=== PATIENT | female | born 1990 | race African-American/Black ===

== ENCOUNTER 2017-04-18 17:49 | Emergency (ER) | payer OTHER ==
--- NOTE | ~2017-04-18 | CT4 ---
[facility] A Service of [facility] RADIOLOGY TEXT RESULTS PATIENT: NIKKIE CAZARES LOCATION: CFT[facility] : 88 UNIT #: [id number] AGE: [address]: SOY BAGLEY APRN SEX: F ORDER DR: [id number] [facility] [address] [place], [place] [address] [id number] MR#: [id number] Acc #: [id number] NAME: NIKKIE CAZARES : 1990 SEX: F STUDY DATE/TIME: 04/18/2017 21:16 UNIT: CFTX ROOM: STUDY DESCRIPTION: CT Abd and Pelv Wo Cont Attending Physician: Soy Bagley Aprn Ordering Physician: Axel Alexandre M.D. MEDICAL IMAGING REPORT This report is preliminary unless electronic signature is present EXAM CT abdomen and pelvis 04/18/2017 HISTORY Right flank pain for 3 days. Nausea. Vomiting. Diarrhea. Chills. TECHNIQUE CT abdomen and pelvis performed without administration of oral or intravascular contrast. This CT exam was performed with one or more of the following radiation dose reduction techniques: automatic exposure control, adjustment of mA and/or kV according to patient size, and iterative reconstruction. COMPARISON STUDIES No prior CTs for comparison. FINDINGS Lung bases clear. Inferior heart and pericardium unremarkable. Visualized portions of liver notable for 1.2 cm focus of hypodensity in segment 4B of the liver, adjacent the falciform ligament, most consistent with focal fatty infiltration. Gallbladder, spleen, pancreas, adrenal glands unremarkable. No hydronephrosis or nephrolithiasis. No perinephric inflammatory change. The bilateral ureters are difficult to visualize given their decompressed state. No indication of ureteral calculi. No secondary signs of recent stone passage. Calculus in the deep right pelvis felt to be a phlebolith. It is not in the anticipated course of the distal right ureter. CT PELVIS: No inguinal adenopathy. Urinary bladder, uterus, adnexal regions unremarkable. No abnormal fluid collections. No pelvic or retroperitoneal adenopathy. Distal esophagus, stomach, small bowel [facility] A Service of [facility] RADIOLOGY TEXT RESULTS PATIENT: NIKKIE CAZARES LOCATION: CFTX : [birth year] UNIT #: [id number] AGE: [address]: SOY BAGLEY APRN SEX: F ORDER DR: unremarkable. Appendix normal. Colon unremarkable. Unopacified vascular structures unremarkable. Bony structures unremarkable. IMPRESSION 1. No renal calculi or obstruction. No acute renal findings are seen and there are no secondary signs of recent stone passage. 2. Gallbladder, pancreas, appendix normal. Uterus and adnexal regions unremarkable. 3. No abnormal fluid collections. No free air. 4. 1.2 cm area of hypodensity adjacent to the falciform ligament in segment 4B of the liver, most consistent with focal fatty infiltration. Given the patient's young age, benign etiology strongly favored. This is best fully characterized with elective MRI or multiphase contrast-enhanced CT. Dictated by... Khurram Saldivar M.D. THIS IS AN ELECTRONICALLY VERIFIED REPORT Khurram Saldivar M.D. at 04/19/2017 5:58 PM Torie TD: 04/18/2017 23:10 JOB #: [id number] MEDICAL IMAGING REPORT Page 1 of 1 COPY
[2017-04-18 18:22] LABS: URINE SOURCE CLEAN CATCH
[2017-04-18 18:32] LABS: URINE APPEARANCE CLOUDY; URINE BILIRUBIN NEG (NEG); URINE BLOOD 1+ (NEG); URINE COLOR YELLOW; URINE GLUCOSE NEG (NEG); URINE KETONE NEG (NEG); URINE LEUKOCYTE ESTERASE 3+ (NEG); URINE NITRATE NEG (NEG); URINE PH 6.5 (5-8); URINE PROTEIN 1+ (NEG); URINE SPECIFIC GRAVITY 1.013 (1.003-1.035)
[2017-04-18 18:35] LABS: CULTURE INDICATED? YES; URINE BACTERIA AUWI 4+ (NEGATIVE); URINE SQUAMOUS EPITHELIAL CELL MOD /[HPF]; UWBCS1 AUWI 100-200 (0-5)
[2017-04-18 18:37] LABS: INFLUENZA A NEG (NEG); INFLUENZA B NEG (NEG)
[2017-04-18 18:45] LABS: U HYALINE CASTS AUWI 0-2 /[LPF]
[2017-04-18 19:00] LABS: BASOPHIL% 0.4 % (0-2.5); EOSINOPHIL% 0.1 % (0.0-7.0); HEMATOCRIT 37.7 % (35.0-45.0); HEMOGLOBIN 12.8 gm/dL (12.0-16.0); LYMPHOCYTE# 1.3 X10e3 (1.0-3.5); MEAN CELL VOLUME 91.5 FL (83-96); MEAN CORPUSCULAR HEMOGLOBIN 31.2 PG (28-34); MEAN CORPUSCULAR HGB CONC 34.1 g/dL (30-36); MEAN PLATELET VOLUME 7.1 FL (6.5-11.5); MONOCYTE# 0.7 X10e3 (0-1.0); MONOCYTE% 9.4 % (3.0-12.0); NEUTROPHIL# 5.7 X10e3 (1.5-7.1); NEUTROPHIL% 73.1 % (40-75); PLATELET COUNT 228 X10e3 (140-420); RED BLOOD COUNT 4.12 X10e (3.90-5.30); RED CELL DISTRIBUTION WIDTH 12.4 % (11.0-15.5); WHITE BLOOD COUNT 7.9 X10e3 (4.0-10.5)
[2017-04-18 19:04] LABS: DIFF IND NO
[2017-04-18 19:37] LABS: ALBUMIN SERUM 4.4 g/dL (3.5-5.0); BILIRUBIN,TOTAL 0.3 mg/dL (0.2-2.0); CALCIUM SERUM 8.7 mg/dL (8.4-10.2); CREATININE SERUM 0.6 mg/dL (0.6-1.4); GLOM FILT RATE Estimated 143.8 mL/min (>60); POTASSIUM 3.5 mmol/L (3.5-5.1); PROTEIN TOTAL SERUM 7.7 g/dL (6.0-8.3)
== END 2017-04-18 23:20 | disposition home or self-care (01) ==
LOC: CED 17:49 → CFTX 17:49 → CED 18:26 → CFTX 18:26
PROVIDERS: Nurse Practitioner
DX: N10 Acute pyelonephritis (principal); N39.0 Urinary tract infection, site not specified; F17.210 Nicotine dependence, cigarettes, uncomplicated
CPT/HCPCS: 36415; 74176; 80053; 81003; 83690; 84703; 85025; 87086; 87088; 87186; 87804; 96361; 96365; 99284; J0696